=== PATIENT | female | born 1965 | race Caucasian/White ===

== ENCOUNTER 2017-05-23 07:08 | Outpatient (CLI) | payer OTHER ==
--- NOTE | 2017-05-24 18:51 | Mammography Report ---
DIGITAL SCREENING MAMMOGRAM: 05/23/2017 CLINICAL INDICATION: A 51-year-old with history of late childbearing for baseline. TECHNIQUE: Routine CC and MLO projections were obtained of the breasts as well as bilateral laterall y exaggerated craniocaudal views. FINDINGS: The breasts demonstrate heterogeneously dense fibroglandular parenchyma bilaterally. Coar se and punctate, typically benign calcifications are present. No suspicious masses, clustered microc alcifications, or regions of architectural distortion are identified. IMPRESSION: BENIGN FINDINGS. RECOMMENDATION: Routine annual screening unless otherwise clinically indicated. BI-RADS category 2, benign findings. STANDARD QUALIFYING STATEMENTS 1. This examination was reviewed with the aid of Computer-Aided Detection (CAD). 2. A negative or benign imaging report should not delay biopsy if clinically suspicious findings are present. Consider surgical consultation if warranted. More than 5% of cancers are not identified by i maging. 3. Dense breasts may obscure an underlying neoplasm. JOB #: [id number] EXT JOB #:[id number]
== END 2017-05-23 07:09 | disposition home or self-care (01) ==
LOC: DI 07:08
PROVIDERS: ATTEND Physician Assistant
DX: Z12.31 Encounter for screening mammogram for malignant neoplasm of breast (principal)
CPT/HCPCS: 77067

== ENCOUNTER 2018-10-30 09:04 | Outpatient (CLI) | payer OTHER ==
--- NOTE | 2018-10-30 12:01 | CARDIAC PROCEDURE NOTE ---
DATE OF SERVICE: 10/30/2018 Physician: Yvonne Mata MD, [facility] INDICATION: Chest pain. CARDIAC RISK FACTORS 1. Laura- or post-menopausal status. 2. Family history of heart disease. PROCEDURE: After signing informed consent, the patient underwent a treadmill stress test with Echo imaging at rest and at peak heart rate. RESTING HEART RATE: 65. Peak heart rate: 150 (89% predicted maximum heart rate for age). RESTING BLOOD PRESSURE: 114/65. Peak blood pressure: 149/68; it ga higher in early recovery to 168/60 and then recovered to normal. The patient exercised for 4 minutes and 36 seconds on a Ronan protocol treadmill stress test and achieved a peak heart rate of 90 (89% PMHR) and 7 METS. She developed minimal shortness of breath, no chest pain. Normal heart rate and blood pressure response to exercise. RESTING EKG: Normal sinus rhythm, left atrial enlargement, vertical axis, otherwise within normal limits. PEAK EKG: No ischemic ST segment or T-wave changes. SUMMARY 1. Adequate exercise response on this treadmill stress test with Echo imaging. 2. No ischemic changes by EKG criteria. 3. Echo images reported separately. cc: Tessa Anand NP TD: 10/30/2018 11:38 MTDD
== END 2018-10-30 09:05 | disposition home or self-care (01) ==
LOC: DI 09:04
PROVIDERS: ATTEND Nurse Practitioner Family
DX: R07.9 Chest pain, unspecified (principal)
CPT/HCPCS: 93351

== ENCOUNTER 2019-12-16 14:31 | Outpatient (CLI) | payer OTHER | END 2019-12-16 14:32 | disposition home or self-care (01) | LOC: COV 14:31 | PROVIDERS: ATTEND Family Medicine | DX: R05 Cough (principal); R50.9 Fever, unspecified | CPT/HCPCS: 81599 ==

== ENCOUNTER 2021-12-06 23:12 | Emergency (ER) | payer OTHER ==
--- OUTSIDE RECORDS SUMMARY | 2021-12-06 23:43 | EXTERNAL MEDICAL SUMMARY RPT | Continuity of Care Document ---
:1965 Author Organization [facility] Address [address] [place] [address] Phone Care Team Providers Name Role Phone Rusty Santamaria Unavailable Unavailable Allergies No information. Encounters No information. Medications date description facility 20211113 Cephalexin 500 MG Oral Capsule [facility] Problems date description facility 20211113 Pain in left knee [facility] 20211113 Effusion, left [facility] Procedures date description facility [id number] General Physician [facility] Results No information. Vital Signs date measurement value source 20211113 weight_standard 61.23 lb 20211113 weight_metric 27.78 kg 20211113 temperature_standard 99.6 F 20211113 temperature_metric 37.56 C 20211113 respiration_rate 14 /min 20211113 height_standard 64 in 20211113 height_metric 162.56 cm 20211113 heart_rate 76 /min 20211113 BP_systolic 100 mm[Hg] 20211113 BP_diastolic 70 mm[Hg] 20211113 BMI 23.1 kg/m2
[2021-12-07] MEDS ORDERED: SODIUM CHLORIDE 0.9% 1,000 ML IV STA ×2 (00:11→04:31)
[2021-12-07 00:22] LABS: BASOPHILS % (AUTO) 0.1 %; HCT - HEMATOCRIT 29.1 % (37.0-47.0); HGB - HEMOGLOBIN 9.5 g/dL (12.0-16.0); LYMPHOCYTES % (AUTO) 9.4 %; MEAN CORPUSCULAR HEMOGLOBIN 32.3 pg (27.0-31.0); MEAN CORPUSCULAR HGB CONC 32.6 g/dL (32.0-36.0); MEAN PLATELET VOLUME 11.7 fL (7.9-10.8); MONOCYTES % (AUTO) 67.4 %; NEUTROPHILS % (AUTO) 17.5 %; PLT - PLATELET COUNT 55 10^3/uL (130-450); RED BLOOD COUNT 2.94 10^6/uL (4.20-5.40); RED CELL DISTRIBUTION WIDTH 15.8 % (12.0-15.0)
[2021-12-07 00:25] LABS: WHITE BLOOD COUNT 36.4 x10^3/uL (4.8-10.8)
[2021-12-07 00:26] LABS: ABNORMAL LYMPHS % (MANUAL) 0 %; BAND NEUTROPHILS % (MANUAL) 0 %
[2021-12-07 00:31] LABS: ALBUMIN 3.6 g/dL (3.2-5.5); BILIRUBIN,TOTAL 0.4 mg/dL (0.2-1.0); CALCIUM 8.7 mg/dL (8.5-10.3); CREATININE 0.5 mg/dL (0.4-1.0); TOTAL PROTEIN 7.1 g/dL (6.7-8.2)
--- NOTE | 2021-12-07 00:42 | XRAY Report ---
PROCEDURE: Chest 1 View X-Ray INDICATIONS: Chest pain TECHNIQUE: One view of the chest was acquired. COMPARISON: None FINDINGS: Surgical changes and devices: None. Lungs and pleura: Patchy opacities in left lung base. Trace left-sided pleural fluid collection. Mediastinum: Mediastinal contours appear normal. Heart size is normal. Bones and chest wall: No suspicious bony lesions. Overlying soft tissues appear unremarkable. IMPRESSION: Patchy opacity left lung base suspicious for pneumonia. Reviewed by: Annamaria Shell MD, PhD on 12/07/2021 12:43 AM PDT Approved by: Annamaria Shell MD, PhD on 12/07/2021 12:43 AM PDT Station ID: [id number]
[2021-12-07] MEDS ORDERED: AZITHROMYCIN INJ 500 MG in SODIUM CHLORIDE 0.9% 250 ML IV STA (01:42)
[2021-12-07] MEDS ORDERED: cefTRIAXone 1 GM in SODIUM CHLORIDE 0.9% MINIBAG 100 ML IV STA (01:42)
[2021-12-07 01:53] LABS: LYMPHOCYTES % (MANUAL) 22 %; NEUTROPHILS # (MANUAL) 7.3 10^3/uL (1.5-6.6); PLATELET ESTIMATE, MANUAL DECREASED (<130,000) (NORMAL); RBC MORPHOLOGY (MULTIPLE) NORMAL APPEARANCE (NORMAL)
--- NOTE | 2021-12-07 01:53 | ED Physician Documentation ---
History of Present Illness - Stated complaint Stated Complaint: WEAKNESS/HEADACHE/SPIDER BITE - Chief complaint Chief Complaint: Fever - History obtained from History obtained from: Patient - Additonal information Additional information: Pt Presenting for evaluation of fever, chest discomfort and generalized malaise for 5 days. 3 weeks ago she had a spider bite to the left leg that became infected and completed her course of clindamycin. That area has improved. Since Sunday she has been having a fever up to 101. She additionally has been having a chest tightness and feelsGeneralized weakness and fatigue. She denies cough, difficulty breathing, abdominal pain, vomiting, diarrhea, dysuria, rashes elsewhere. She did take Covid test at home which was negative. She has been vaccinated for Covid. She denies any known sick contacts. Denies recent travel. Review of Systems Constitutional: reports: Fever, Chills, Myalgias, Fatigue Nose: denies: Congestion Cardiac: reports: Chest pain / pressure Respiratory: denies: Dyspnea, Cough, Hemoptysis GI: denies: Abdominal Pain, Nausea, Vomiting : denies: Dysuria Skin: denies: Rash Musculoskeletal: denies: Back pain Neurologic: denies: Syncope PD PAST MEDICAL HISTORY - Present Medications Home Medications: Ambulatory Orders Medication Instructions Recorded Confirmed Clindamycin [Cleocin] 150 mg 12/06/21 - Allergies Allergies/Adverse Reactions: Allergies Allergy/AdvReac Type Severity Reaction Status Date / Time Sulfa (Sulfonamide Allergy Unknown Unknown Verified 12/06/21 23:29 Antibiotics) PD ED PE NORMAL - General General: Alert and oriented X 3, No acute distress, Well developed/nourished - HEENT HEENT: Atraumatic, PERRL, EOMI, Ears normal, Moist mucous membranes, Pharynx benign - Neck Neck: Supple, no meningeal sign, No bony TTP - Cardiac Cardiac: No murmur, No gallop, Strong equal pulses, Other (Tachycardic, regular rhythm) - Respiratory Respiratory: No respiratory distress, Clear bilaterally - Abdomen Abdomen: Normal bowel sounds, Soft, Non tender, Non distended - Derm Derm: Normal color, Warm and dry, No rash - Extremities Extremities: No deformity, No edema - Neuro Neuro: Alert and oriented X 3, No motor deficit, Normal speech - Psych Psych: Normal mood, Normal affect Results - Vitals Vitals: Vital Signs - 24 hr 12/06/21 12/06/21 12/07/21 23:25 23:59 02:04 Temperature 36.3 C L 36.8 C Heart Rate 110 H 104 H 113 H Respiratory 14 18 15 Rate Blood Pressure 142/71 H 142/82 H 142/79 H O2 Saturation 94 97 98 12/07/21 12/07/21 12/07/21 02:44 03:14 04:13 Temperature Heart Rate 110 H 117 H 116 H Respiratory 14 17 17 Rate Blood Pressure 135/75 H 140/82 H 133/81 H O2 Saturation 98 98 97 12/07/21 12/07/21 04:35 05:01 Temperature 36.7 C Heart Rate 115 H Respiratory 15 Rate Blood Pressure 132/79 H O2 Saturation 96 Oxygen O2 Source Room air - EKG (time done) 1209 Rate: Rate (enter#) (96) Rhythm: NSR Ischemia: Q waves (Anteroseptal leads) - Labs Labs: Laboratory Tests 12/07/21 12/07/21 12/07/21 00:15 00:15 00:15 WBC 36.4 H* RBC 2.94 L Hgb 9.5 L Hct 29.1 L MCV 99.0 MCH 32.3 H MCHC 32.6 RDW 15.8 H Plt Count 55 L MPV 11.7 H Neut # (Auto) Not Reportable Lymph # (Auto) Not Reportable Zavala # (Auto) Not Reportable Eos # (Auto) Not Reportable Baso # (Auto) Not Reportable Absolute Nucleated RBC Not Reportable Total Counted 100 Band Neuts % (Manual) 0 Abnorm Lymph % (Manual) 0 Blast Cells % 58 H* Nucleated RBC % Not Reportable Neutrophils # (Manual) 7.3 H Lymphocytes # (Manual) 8.0 H Monocytes # (Manual) 0.0 Eosinophils # (Manual) 0.0 Basophils # (Manual) 0.0 Differential Comment MANUAL DIFFERENTIAL WBC Morphology 1+ JOSÉ MANUEL RODS Platelet Estimate DECREASED (<130,000) RBC Morph Micro Appear NORMAL APPEARANCE Sodium 138 Potassium 4.0 Chloride 100 L Carbon Dioxide 28 Anion Gap 10.0 BUN 12 Creatinine 0.5 Estimated GFR (MDRD) 128 Glucose 108 H Lactic Acid Calcium 8.7 Iron TIBC % Saturation Transferrin Total Bilirubin 0.4 AST 39 ALT 45 Alkaline Phosphatase 56 Troponin I High Sens 3.9 C-Reactive Protein Total Protein 7.1 Albumin 3.6 Globulin 3.5 Albumin/Globulin Ratio 1.0 Vitamin B12 Folate TSH SARS-CoV-2 (PCR) 12/07/21 12/07/21 12/07/21 00:15 00:15 00:15 WBC RBC Hgb Hct MCV MCH MCHC RDW Plt Count MPV Neut # (Auto) Lymph # (Auto) Zavala # (Auto) Eos # (Auto) Baso # (Auto) Absolute Nucleated RBC Total Counted Band Neuts % (Manual) Abnorm Lymph % (Manual) Blast Cells % Nucleated RBC % Neutrophils # (Manual) Lymphocytes # (Manual) Monocytes # (Manual) Eosinophils # (Manual) Basophils # (Manual) Differential Comment WBC Morphology Platelet Estimate RBC Morph Micro Appear Sodium Potassium Chloride Carbon Dioxide Anion Gap BUN Creatinine Estimated GFR (MDRD) Glucose Lactic Acid 0.7 Calcium Iron 76 TIBC 185 L % Saturation 41 Transferrin 132 L Total Bilirubin AST ALT Alkaline Phosphatase Troponin I High Sens C-Reactive Protein 4.2 H Total Protein Albumin Globulin Albumin/Globulin Ratio Vitamin B12 256 Folate 14.24 TSH 2.58 SARS-CoV-2 (PCR) 12/07/21 02:02 WBC RBC Hgb Hct MCV MCH MCHC RDW Plt Count MPV Neut # (Auto) Lymph # (Auto) Zavala # (Auto) Eos # (Auto) Baso # (Auto) Absolute Nucleated RBC Total Counted Band Neuts % (Manual) Abnorm Lymph % (Manual) Blast Cells % Nucleated RBC % Neutrophils # (Manual) Lymphocytes # (Manual) Monocytes # (Manual) Eosinophils # (Manual) Basophils # (Manual) Differential Comment WBC Morphology Platelet Estimate RBC Morph Micro Appear Sodium Potassium Chloride Carbon Dioxide Anion Gap BUN Creatinine Estimated GFR (MDRD) Glucose Lactic Acid Calcium Iron TIBC % Saturation Transferrin Total Bilirubin AST ALT Alkaline Phosphatase Troponin I High Sens C-Reactive Protein Total Protein Albumin Globulin Albumin/Globulin Ratio Vitamin B12 Folate TSH SARS-CoV-2 (PCR) NOT DETECTED PD MEDICAL DECISION MAKING - ED course ED course: Patient presenting for evaluation of recent fever, chest tightness and malaise. On arrival she is tachycardic but afebrile and normotensive.Sepsis work-up initiated. Patient has a significantly elevated white blood cell count.Chest x- ray suggest pneumonia. I received a call from the lab who is concerned that her peripheral smear shows a large amount of blasts.They were unable to get their camera working for the pathologist to confirm this.shop technician believes there is approximately 58% blasts. I discussed these findings with the patient and My concern that these abnormal cells represent cancer. She indicates understanding. If patient has a neoplastic process, her port PSI score is a class III.I do feel that she would benefit from inpatient treatment. Antibiotics have been ordered.She is a [facility] patient. I have reached out to [facility] at 1:41 AM and I am awaiting callback. 217 - Discussed with on-call [facility] physician (Dr. Randhawa). He feels the patient can stay at [facility]. He believes that the patient Can follow-up for her blasts as an outpatient with her primary care doctor. 222 - Discussed with admitting hospitalist, Dr. Ravi Agrees that the patient should be admitted to the hospital. Expresses concern that hematology oncology is not available here. He will also reach out to the [facility] physician to discuss The plan of care. Dr. Ravi has graciously Spoken to the on-call [facility] physician, . [facility] has now agreed that the patient can be transferred out of network.We will attempt to transfer the patient to a facility that has heme-onc. Patient is aware of the plan and is agreeable. 0408 - Discussed the case with Dr. Durbin at [facility] who agrees to accept the patient in transfer. Agrees with current antibiotic regiment. 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
[2021-12-07 01:54] LABS: DIFFERENTIAL COMMENT MANUAL DIFFERENTIAL; WBC MORPHOLOGY (MULTIPLE) 1+ AUER RODS (NORMAL)
[2021-12-07] MEDS ORDERED: cefTRIAXone 1 GM VIAL ONE (02:05)
[2021-12-07] MEDS ORDERED: ONDANSETRON 4 MG/2 ML VIAL IVP PRN (03:37)
[2021-12-07] MEDS ORDERED: SODIUM CHLORIDE FLUSH 0.9% 10 ML SYRINGE IVP PRN (03:37)
[2021-12-07] MEDS ORDERED: HYDROcod/ACETAM 5/325 MG TABLET PO PRN (03:37)
[2021-12-07] MEDS ORDERED: ACETAMINOPHEN 325 MG TABLET PO PRN (03:37)
[2021-12-07] MEDS ORDERED: PROCHLORPERAZINE 10 MG/2 ML VIAL IVP PRN (03:37)
--- NOTE | 2021-12-07 03:50 | HISTORY & PHYSICAL EXAMINATION ---
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 She states that 3 weeks ago she was treated for a spider-bite induced cellulitis and completed a 10 day course of clindamycin. That area has improved to her left back of her knee. She presents with fevers as high as 101 since Sunday and was 100.8 on the day of admission, however in ED she was afebrile. In addition, patient related non-exertional and pleuritic type chest pain with no cough, hemoptysis, mild nausea, no shortness of breath but noted some substernal discomfort with palpitations and found to be tachycardic 115's. 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 She relays having received the moderna vaccine 2 series and no booster given. However, she states that she had her lymph nodes swell up and experienced fullness to her left breast with associated malaise/fatigue. She states no cancer in family. She denies difficulty breathing, abdominal pain, vomiting, diarrhea, dysuria, maculopapular rashes elsewhere. She did take Covid test at home which was negative. Again negative here in the ED. She denies any known sick contacts. Denies recent travel. In the ED she was found to have a LLL pneumonia with a WBC of 36K, hgb 9.5 with a plt 55K, blasts of 68%, electrolytes and renal function were normal. Lactic acid was normal as well as liver panel. Troponin was unremarkable despite sinus tachycardia on telemetry. She was given 1L of NS in the ED with hear rates still in the upper 90's to 100's. She was given 1 dose of azithromycin as well as rocephin for her suspected community-acquired pneumonia. She met sepsis criteria on admission and therefore and had 2 sets of blood cultures and had been empirically given IV antibiotics. 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 She was deemed to need a higher level of care and Dr. Randhawa the on-call [facility] physician had agreed however due to her [employer] insurance she was first screened to see if she would be accepted to contracted hospitals that would accept her. These hospitals did not have bed nunu ilability and therfore patient was authorized by [facility] physician to go to out of network facility due to higher level of care necessity given the situation with being placed on waiting list of contracted tertiary care facilities. The hospitalist service was called for further consultation and medical management. History - Past Medical History Cardiovascular: reports: None. denies: Congestive heart failure, Hypertension, Coronary artery disease, Peripheral Vascular Disease, Pulmonary embolism, Atrial fibrillation Respiratory: reports: None. denies: Emphysema, Pneumonia Neuro: denies: CVA, Headaches, Multiple sclerosis Endocrine/Autoimmune: reports: None. 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 Grandmother on father side with CVA. Living arrangement: At home Living Situation: With spouse/s.o. - Substance History Use: Uses substance without health or social issues: NONE Use Issues: uncomplicated Abuse: Recurrent use of substance despite neg consequences: NONE Abuse Issues: uncomplicated Dependence: Experiences withdrawal or developed tolerances: NONE - POLST POLST Status: Full Code (She states full code but would not like to have life prolonging interventions if she has irreversible medical conditions) Meds/Allgy - Home Medications Home Medications: Ambulatory Orders Medication Instructions Recorded Confirmed Clindamycin [Cleocin] 150 mg 12/06/21 - Allergies Allergies/Adverse Reactions: Allergies Allergy/AdvReac Type Severity Reaction Status Date / Time Sulfa (Sulfonamide Allergy Unknown Unknown Verified 12/06/21 23:29 Antibiotics) Review of Systems - Constitutional Constitutional: reports: Fatigue, Fever, Chills, Malaise, Weakness. denies: Night sweats, Weight gain, Weight loss - Eyes Eyes: denies: Blurred vision, Vision loss - Ears, Nose & Throat Ears, Nose & Throat: denies: Ear pain, Tinnitus, Vertigo, Sore throat - Cardiovascular Cariovascular: reports: Palpitations, Chest pain. denies: Irregular heart rate, Edema, Syncope, Orthopnea - Respiratory Respiratory: reports: Pleuritic pain. denies: Sputum production, Wheezing, Hemoptysis, Orthopnea - Gastrointestinal Gastrointestinal: reports: Nausea. denies: Abdominal pain, Diarrhea, Vomiting, Coffee grounds emesis, Reflux/heartburn - Genitourinary Genitourinary: denies: Dysuria, Urgency, Hematuria - Musculoskeletal Musculoskeletal: denies: Muscle weakness, Joint swelling - Integumentary Integumentary: denies: Rash, Lumps, Pigment changes - Neurological Neurological: denies: Numbness, Memory problems, Slurred speech - Psychiatric Psychiatric: denies: Depression, Hallucinations - Endocrine Endocrine: denies: Polyuria, Intolerance to cold - Hematologic/Lymphatic Hematologic/Lymphatic: reports: Anemia, Bruising. denies: Blood clots, Lymphadenopathy, Bleeding tendencies, Recurrent infections - All Other Systems All Other Systems: reports: Reviewed and negative Prior Level of Functionality: Patient ambulates at home with good functional capacity Exam - Vital Signs Reviewed Vital Signs: Yes Vital Signs: Vital Signs x48h Temp Pulse Resp BP Pulse Ox 12/07/21 03:14 117 H 17 140/82 H 98 12/07/21 02:44 110 H 14 135/75 H 98 12/07/21 02:04 36.8 C 113 H 15 142/79 H 98 12/06/21 23:59 104 H 18 142/82 H 97 12/06/21 23:25 36.3 C L 110 H 14 142/71 H 94 - Physical Exam General Appearance: positive: No acute distress Eyes Bilateral: positive: Normal inspection ENT: positive: ENT inspection nml Neck: positive: Nml inspection, Trachea midline. negative: Thyromegaly, Swelling/bruising Respiratory: positive: Chest non-tender (mildly tender to ACW), No respiratory distress, Breath sounds nml. negative: Wheezes, Rales, Rhonchi Cardiovascular: positive: Regular rate & rhythm, Tachycardia. negative: Irregularly irregular, JVD present, Systolic murmur, Gallop/S3, Gallop/S4 Peripheral Pulses: positive: 2+ Abdomen: positive: Non-tender, No organomegaly Skin: positive: Color nml, No rash, Warm. negative: Skin rash Extremities: positive: Non-tender, Full ROM, Nml appearance. negative: No pedal edema Neurologic/Psychiatric: positive: Oriented x3 Sepsis Event Note (H) - Evaluation Current Stage of Sepsis: Sepsis Possible source of Sepsis: positive: Pulmonary, Other (AML induced) Confirmed Source and Organism (if known) of Sepsis: Likely from pneumonia seen on CXR. 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 AML further corroborated by the peripheral smear showing 68% blasts for which highly suspicious acute leukemia if blast>20% with associated blast crisis. She will require hem/onc eval and work up to include a bone marrow bx for definitive diagnosis and to determine etiology or type of AML vs MDS or CML which could also be on the differential. LDH, CBC monitoring to follow with transfusion threshold for plts<50K and Hgb<8 g/dl in the setting of her tachyardia. She has high risk of hypercoagulable state given her blast crisis and will defer off lovenox or heparin as she may also have high risk for bleeding. High risk for thromboembolic events. Higher level of care is needed for likelihood of chemo and aggressive transfusions per Hem/onc. [facility] contractor buyer physician Dr. Randhawa has agreed to have patient transfer to out of network tertiary care facility as other [facility] contracted facilities have no bed availability. (2) Sepsis Conclusion/Plan: Met sepsis criteria on admit with HR>90, WBC>12K and source of infection seen on CXR with LLL pneumonia. Lactic acid was reassuring . Continue with IV abx for now, fluids and medical mgmt. AML likely confounding due to markedly elevated WBC and anemia with thrombocytopenia. Qualifiers: Sepsis type: sepsis due to unspecified organism Sepsis acute organ dysfunction status: without acute organ dysfunction Qualified Code(s): A41.9 - Sepsis, unspecified organism (3) Community acquired bacterial pneumonia Conclusion/Plan: Seen on CXR with LLL pneumonia. Continue with IV azithromycin and rocephin. Bronchodilators as needed, o2 tx prn. COVID test at home and here were neg. She is vaccinated with 2 series moderna. (4) Anemia Conclusion/Plan: Macrocytic anemia. MCV slightly elevated, AML suspected contributing. TSH, B12, FA, iron studies to follow. No evidence of overt bleeding, ecchymosis or petecchiae despite new onset thrombocytopenia. Qualifiers: Anemia type: other cause (5) Generalized weakness Conclusion/Plan: As it pertains to medical conditions as per above. Address underlying infectious and hematological etiologies. - Lab Results Lab results reviewed: Yes Fish Bones: 12/07/21 00:15 12/07/21 00:15 - Diagnostic Imaging Results Diagnostic Imaging Results: positive: Final report reviewed - EKG Results EKG Interpreted Independently: No Core Measures - Issues Hospital Issues and Management Plan: Total critical care time 35 minutes. Advance care planning discussed. - DVT/VTE - Prophylaxis VTE/DVT Device ordered at admit?: Yes VTE/DVT Prophylaxis med ordered at admit?: No Not Ordered - Medical Reason: Contraindicated (suspected AML)
[2021-12-07] MEDS ORDERED: SODIUM CHLORIDE 0.9% 1,000 ML IV SCH (04:00)
[2021-12-07 04:05] LABS: CRP - C-REACTIVE PROTEIN 4.2 mg/dL (0-1.0)
[2021-12-07 04:18] LABS: THYROID STIMULATING HORMONE 2.58 uIU/mL (0.34-5.60)
[2021-12-07 04:29] LABS: FOLATE 14.24 ng/mL (5.90 - >24.8)
[2021-12-07 04:36] VITALS: BP 132/79
[2021-12-07] MEDS ORDERED: PANTOPRAZOLE 40 MG TABLET PO SCH (07:00)
[2021-12-07] MEDS ORDERED: SODIUM CHLORIDE FLUSH 0.9% 10 ML SYRINGE IVP SCH (09:00)
[2021-12-08] MEDS ORDERED: cefTRIAXone 2 GM in SODIUM CHLORIDE 0.9% MINIBAG 100 ML IV SCH (01:00)
[2021-12-08] MEDS ORDERED: AZITHROMYCIN INJ 500 MG in SODIUM CHLORIDE 0.9% 250 ML IV SCH (02:00)
[2021-12-09 14:03] LABS: BLAST CELLS % (MANUAL) 58 %
== END 2021-12-07 05:55 | disposition short-term general hospital (02) ==
LOC: ED 23:12
DX: D69.6 Thrombocytopenia, unspecified (principal); C92.00 Acute myeloblastic leukemia, not having achieved remission; A41.9 Sepsis, unspecified organism; J15.9 Unspecified bacterial pneumonia; D53.9 Nutritional anemia, unspecified; Z20.822 Contact with and (suspected) exposure to COVID-19
CPT/HCPCS: 36415; 80053; 82607; 82746; 83540; 83605; 83615; 84443; 84466; 84484; 85025; 85379; 85610; 86140; 86850; 86900; 86901; 87040; 93005; 96365; 96367; 99283

== ENCOUNTER 2021-12-07 05:53 | Outpatient (CLI) | payer OTHER | END 2021-12-07 05:54 | disposition short-term general hospital (02) | LOC: EMS 05:53 | PROVIDERS: ATTEND Emergency Medicine | DX: R51.9 Headache, unspecified (principal); R50.9 Fever, unspecified; M54.2 Cervicalgia; R00.2 Palpitations; R07.1 Chest pain on breathing | CPT/HCPCS: A0425; A0426 ==

== ENCOUNTER 2023-08-14 22:48 | Emergency (ER) | payer OTHER ==
[2023-08-14 23:41] LABS: BASOPHILS % (AUTO) 0.6 %; EOSINOPHILS # (AUTO) 0.2 10^3/uL (0.0-0.7); EOSINOPHILS % (AUTO) 4.4 %; HCT - HEMATOCRIT 37.1 % (37.0-47.0); HGB - HEMOGLOBIN 11.6 g/dL (12.0-16.0); LYMPHOCYTES # (AUTO) 1.5 10^3/uL (1.5-3.5); LYMPHOCYTES % (AUTO) 29.1 %; MEAN CORPUSCULAR HGB CONC 31.3 g/dL (32.0-36.0); MEAN CORPUSCULAR VOLUME 95.9 fL (81.0-99.0); MONOCYTES # (AUTO) 0.6 10^3/uL (0.0-1.0); MONOCYTES % (AUTO) 12.8 %; NEUTROPHILS # (AUTO) 2.7 10^3/uL (1.5-6.6); NEUTROPHILS % (AUTO) 52.9 %; PLT - PLATELET COUNT 277 10^3/uL (130-450); RED BLOOD COUNT 3.87 10^6/uL (4.20-5.40); RED CELL DISTRIBUTION WIDTH 13.6 % (12.0-15.0)
[2023-08-15 00:03] LABS: ALBUMIN 4.4 g/dL (3.2-5.5); ALBUMIN/GLOBULIN RATIO 2.2 (1.0-2.2); BILIRUBIN,TOTAL 0.2 mg/dL (0.2-1.0); CALCIUM 9.9 mg/dL (8.5-10.3); CREATININE 0.9 mg/dL (0.6-1.3); POTASSIUM 3.9 mmol/L (3.5-4.5); TOTAL PROTEIN 6.4 g/dL (6.4-8.9)
[2023-08-15 00:05] LABS: TROPONIN I HIGH SENSITIVITY 4.2 ng/L (2.3-14.8)
--- NOTE | 2023-08-15 00:25 | ED Physician Documentation ---
History of Present Illness - Stated complaint Stated Complaint: LT SIDE BODY TINGLING - Chief complaint Chief Complaint: General - History obtained from History obtained from: Patient - Additonal information Additional information: Patient is a 57-year-old female with a history of leukemia (status post stem cell transplant in 1 year in remission) and elevated triglyceride level presenting for evaluation of feeling numbness and tingling to the left side of her face left upper arm and left thigh since 10:00 this evening. At 9:00 she reported feeling a brief sharp pain under the left breast that did not radiate and has not reoccurred. She then went to lay down and started to feel the numbness and tingling. She denies having any difficulty with speaking or swallowing. Denies headache, visual disturbances, motor weakness. Denies history of strokes. Does not take a blood thinner. Is currently being monitored for elevated triglyceride level but is not currently on any medication for this and has an appointment with her PCP again in August. Patient reports googling her symptoms and became concerned when she read that it could be a sign of a stroke and thus presented to the emergency department. Review of Systems Constitutional: denies: Fever Cardiac: reports: Chest pain / pressure Respiratory: denies: Dyspnea GI: denies: Abdominal Pain Neurologic: reports: Numbness. denies: Headache, Head injury PD PAST MEDICAL HISTORY - Past Medical History Cardiovascular: None Respiratory: None Neuro: None Endocrine/Autoimmune: None GI: None HEADING REPAIRER: None : None HEENT: None Psych: None Musculoskeletal: None Derm: None - Past Surgical History Past Surgical History: No - Present Medications Home Medications: Ambulatory Orders Medication Instructions Recorded Confirmed No Known Home Medications 08/14/23 08/14/23 - Allergies Allergies/Adverse Reactions: Allergies Allergy/AdvReac Type Severity Reaction Status Date / Time No Known Drug Allergies Allergy Verified 08/14/23 23:17 - Social History Does the pt smoke?: No Smoking Status: Never smoker Does the pt drink ETOH?: No Does the pt have substance abuse?: No - Immunizations Immunizations are current?: Yes - POLST Patient has POLST: No POLST Status: Full Code (She states full code but would not like to have life prolonging interventions if she has irreversible medical conditions) PD ED PE NORMAL - General General: Alert and oriented X 3, No acute distress, Well developed/nourished - HEENT HEENT: Atraumatic, PERRL, EOMI, Moist mucous membranes, Pharynx benign - Neck Neck: Supple, no meningeal sign - Cardiac Cardiac: RRR, No murmur, Strong equal pulses - Respiratory Respiratory: No respiratory distress, Clear bilaterally - Abdomen Abdomen: Soft, Non tender - Derm Derm: Warm and dry - Neuro Neuro: Alert and oriented X 3, international sales representative 2-12 intact, No motor deficit, Normal speech. No: No sensory deficit (Reports mild difference in sensation to left upper and mid face, no involvement of lower face, sensation intact and symmetric in upper and lower extremities) Results - Vitals Vitals: Vital Signs - 24 hr 08/14/23 08/15/23 08/15/23 23:14 01:16 03:16 Temperature 36.1 C L Heart Rate 86 66 73 Respiratory 17 16 18 Rate Blood Pressure 131/67 H 116/73 120/70 O2 Saturation 100 98 97 Oxygen O2 Source Room air - EKG (time done) 2306 EKG releavant findings:: EKG personally interpreted by author of this note. Relevant findings are: Rate 62, normal sinus rhythm, no STEMI, no ST depressions - Labs Labs: Laboratory Tests 08/14/23 08/14/23 08/15/23 23:30 23:30 00:34 WBC 5.0 RBC 3.87 L Hgb 11.6 L Hct 37.1 MCV 95.9 MCH 30.0 MCHC 31.3 L RDW 13.6 Plt Count 277 MPV 9.0 Neut # (Auto) 2.7 Lymph # (Auto) 1.5 [place] # (Auto) 0.6 Eos # (Auto) 0.2 Baso # (Auto) 0.0 Absolute Nucleated RBC 0.00 Nucleated RBC % 0.0 Sodium 141 Potassium 3.9 Chloride 106 Carbon Dioxide 28 Anion Gap 7.0 BUN 20 Creatinine 0.9 Estimated GFR (MDRD) 65 L Glucose 86 Calcium 9.9 Total Bilirubin 0.2 AST 24 ALT 16 Alkaline Phosphatase 60 Troponin I High Sens 4.2 4.0 Total Protein 6.4 Albumin 4.4 Globulin 2.0 L Albumin/Globulin Ratio 2.2 Lipase 46 PD Medical Decision Making - ED course Complexity details: reviewed results, re-evaluated patient, d/w patient, other (Significant delays with CT During the shift. ) ED course: Patient is a 57-year-old female with a history of leukemia in remission as well as recently being told that she has elevated cholesterol levels (not started on a statin yet but does have close follow-up scheduled for next week) Presenting for evaluation of a brief episode of left-sided chest pain as well as left-sided numbness and tingling. Chest pain has resolved. EKG is reviewed and is nonischemic.Neuro exam with no appreciable deficits but patient does report mild difference in sensation to certain parts of her left face. Motor is preserved. Sensation in arms and legs are preserved. Normal gait. Very low NIH and would not be a candidate for tPA given her NIH score. Her symptoms also improved while in the ER. CBC, chemistry, troponin x2 were obtained and reviewed and without significant findings. Patient declined chest x-ray. CT head and angio of the head and neck were obtained and reviewed and without significant findings. I did review this with the patient and did express that her symptoms could be related to a possible mini stroke. Her ABCD2 score for TIA would put her as a low risk and thus I do not think she needs admission at this time. We also do not currently have MRI available and patient is very eager for discharge. I did review results and expressed need for close follow-up with primary care regarding her symptoms today. In the meanwhile I did recommend taking a baby aspirin. Patient is also counseled on concerning symptoms to return for. 1255 - Patient initially did not want CT head or CT angio head and neck. I explained what we are looking for on these tests. However now she is agreeable to this but does not want a chest x-ray as she states she recently had a pulmonary work-up and does not want any additional radiation. I also explained the reasons to obtain a chest x-ray today given her symptom of chest pain earlier tonight. Patient indicates that she understands but still would like to decline at this time. Departure - Departure Disposition: 01 Home, Self Care Clinical Impression: Left sided numbness, Chest pain Condition: Stable Instructions: ED Chest Pain NonCardiac, ED Transient Ischemic Attack Comments: Your CAT scans do not show signs of bleeding and the pictures we took of your blood vessels show no narrowing or blockages. Your symptoms have improved here and that is a good sign. Your symptoms could be related to a mini stroke and so I would recommend close follow-up with your primary care provider as you may need further testing. In the meanwhile I would recommend taking a baby aspirin daily until you see your primary care provider. We also evaluated you for chest pain and at this time I do not see signs of a heart attack but again you should have close follow-up with your primary care provider as you may need further testing such as a stress test. If at anytime you develop any new or worsening symptoms please return to the emergency department. Forms: PCP List
[2023-08-15] MEDS ORDERED: iohexoL-300 100 ML VIAL IVP ONE (05:22)
[2023-08-15 05:59] VITALS: BP 140/91; O2SAT 100
--- NOTE | 2023-08-15 08:14 | CT Report ---
PROCEDURE: HEAD WO INDICATIONS: L sided numbness TECHNIQUE: Noncontrast 4.5 mm thick angled axial sections acquired from the foramen magnum to the vertex. For r adiation dose reduction, the following was used: automated exposure control, adjustment of mA and/or kV according to patient size. COMPARISON: None. FINDINGS: Image quality: Excellent. CSF spaces: Basal cisterns are patent. No extra-axial fluid collections. Ventricles are normal in size and shape. Brain: No midline shift. No intracranial masses or hemorrhage. Burden-white matter interface is norm al. Skull and face: Calvarium and visualized facial bones are intact, without suspicious lesions. Sinuses: Visualized sinuses and mastoids are clear. IMPRESSION: No acute intracranial pathology. Findings are concordant with preliminary interpretation provided by [facility]. Reviewed by: Tristen Wolff MD on 08/15/2023 8:12 AM PST Approved by: Tristen Wolff MD on 08/15/2023 8:12 AM PST Station ID: [id number]
--- NOTE | 2023-08-15 08:27 | CT Report ---
PROCEDURE: CT Angio Head/Neck INDICATIONS: L sided numbness TECHNIQUE: After the administration of intravenous contrast, 1 mm thick sections acquired from the aortic arch t hrough the [place] of [place]. 3-dimensional fqcwsda-wfkniquax-mcmprwydje (MIP) and/or volume renderin g reformats were acquired of the central intracranial vasculature and neck separately. For radiation dose reduction, the following was used: automated exposure control, adjustment of mA and/or kV acco rding to patient size. CONTRAST: Omni 300 80ml COMPARISON: Head CT from the same day. FINDINGS: Image quality: Diagnostic. HEAD CT: CSF Spaces: Basal cisterns are patent. No extra-axial fluid collections. Ventricles are normal in size and shape. Brain: No significant abnormality is seen for scanning technique. No area of abnormal intracranial enhancement is noted. Skull and face: Calvarium and visualized facial bones appear intact, without suspicious lesions. Sinuses: Visualized sinuses and mastoids are clear. HEAD CT ANGIOGRAPHY: Anterior circulation: Intracranial internal carotid arteries are normal in size and flow. The flow within the paired anterior cerebral arteries is normal and symmetric. The flow within the middle cer ebral arteries is normal and symmetric. The anterior communicating artery is seen. No aneurysms are seen. Posterior circulation: Visualized portions of the vertebral arteries demonstrate normal caliber, and join to form a normal appearing basilar artery. Flow within the posterior cerebral arteries is norm al and symmetric. No aneurysms are seen. NECK CT ANGIOGRAPHY: Carotid system: The great vessels demonstrate a conventional anatomy as they arise from the aortic a rch. The origins of the common carotid arteries appear patent. The common carotid arteries demonstr ate normal caliber and courses. The bifurcation regions are both widely patent. The internal caroti d arteries demonstrate normal calibers and courses. Posterior circulation: The origins of the vertebral arteries both appear widely patent. The more gil perior extracranial portions of both vertebral arteries also demonstrate normal courses and calibers. They join to form a normal appearing basilar artery. Soft tissues: Visualized neck soft tissues demonstrate no suspicious abnormalities. Bones: No suspicious bony lesions. Visualized cervical spine appears normally aligned. IMPRESSION: 1. No CT evidence of acute intracranial abnormalities. No area of abnormal intracranial enhancement. 2. No hemodynamically significant stenosis or aneurysm is seen in the intracranial circulation. 3. No hemodynamically significant stenosis is seen in bilateral neck arteries. Findings are concordant with preliminary interpretation provided by [facility]. The estimate of stenosis included in the report of the imaging study was calculated using the NASCET method Reviewed by: Travis Fitzpatrick MD on 08/15/2023 8:26 AM PST Approved by: Travis Fitzpatrick MD on 08/15/2023 8:26 AM PST Station ID: [id number]
== END 2023-08-15 06:01 | disposition home or self-care (01) ==
LOC: ED 22:48
DX: R07.9 Chest pain, unspecified (principal); R20.0 Anesthesia of skin
CPT/HCPCS: 36415; 70450; 70496; 70498; 80053; 83690; 84484; 85025; 93005; 99283; 99284; Q9967